=== PATIENT | female | born 1980 | race Hispanic/Latino ===

== ENCOUNTER 2018-09-12 13:21 | Emergency (ER) | payer SELFPAY ==
[2018-09-12] MEDS ORDERED: HYDROXYZINE HCL 25 MG TABLET ONE (15:13)
== END 2018-09-12 15:31 | disposition home or self-care (01) ==
LOC: EDH 13:21
DX: F41.1 Generalized anxiety disorder (principal); I10 Essential (primary) hypertension; Z90.49 Acquired absence of other specified parts of digestive tract
CPT/HCPCS: 93005

== ENCOUNTER 2019-09-03 03:04 | Emergency (ER) | payer SELFPAY ==
[2019-09-03 04:43] LABS: RAPID GROUP A STREP NEGATIVE (NEGATIVE)
[2019-09-03 04:46] LABS: APPEARANCE,URINE Turbid (CLEAR); BILIRUBIN,URINE Negative (NEGATIVE); COLOR,URINE Dark Yellow (YELLOW); GLUCOSE, URINE (UA) Negative (NEGATIVE); KETONES,URINE Negative (NEGATIVE); LEUKOCYTE ESTERASE ,URINE Large (NEGATIVE); NITRATE,URINE Negative (NEGATIVE); OCCULT BLOOD,URINE Large (NEGATIVE); PH,URINE 5.5 (5.0-8.0); PROTEIN,URINE 300 mg/dL (NEGATIVE)
[2019-09-03 04:53] LABS: HCG,QUAL RESULT NEGATIVE (NEGATIVE)
[2019-09-03 04:55] LABS: BACTERIA,URINE Few /HPF (None Seen); SQUAMOUS EPITHELIAL CELL,UR Few /HPF (0-2); WBC,URINE >100 /HPF (0-1)
[2019-09-03] MEDS ORDERED: LEVOFLOXACIN 500 MG TABLET ONE (05:15)
== END 2019-09-03 05:28 | disposition home or self-care (01) ==
LOC: EDH 03:04
DX: N39.0 Urinary tract infection, site not specified (principal); J32.9 Chronic sinusitis, unspecified; I10 Essential (primary) hypertension; F41.9 Anxiety disorder, unspecified; Z90.49 Acquired absence of other specified parts of digestive tract; Z88.0 Allergy status to penicillin
CPT/HCPCS: 81001; 81025; 87077; 87088; 87186; 87804; 87880

== ENCOUNTER 2021-02-14 09:03 | Emergency (ER) | payer SELFPAY ==
[~2021-02-14] VITALS: Ht 152.4 cm; Wt 74.4 kg
[2021-02-14 11:19] LABS: BASOPHILS % (AUTO) 0.5 % (0.0-5.0); EOSINOPHILS % (AUTO) 3.6 % (0.0-8.0); HEMATOCRIT 43.4 % (36-48); LYMPHOCYTES % (AUTO) 27.3 % (21.0-51.0); MEAN CORPUSCULAR HEMOGLOBIN 30.8 pg (27.0-33.0); MEAN CORPUSCULAR HGB CONC 33.9 g/dL (32.0-36.0); MONOCYTES % (AUTO) 5.5 % (3.0-13.0); NEUTROPHILS % (AUTO) 62.9 % (40.0-77.0); PLATELET COUNT (AUTO) 343 K/uL (130-400); RED BLOOD CELL COUNT(AUTO) 4.77 MIL/uL (4.00-5.50); RED CELL DISTRIBUTION WIDTH 12.8 % (11.0-15.5); WHITE BLOOD COUNT (AUTO) 11.8 K/uL (4.8-10.8)
[2021-02-14 11:27] LABS: CARBON DIOXIDE 24 mmol/L (21-32); CHLORIDE 103 mmol/L (101-111); CREATININE 0.6 mg/dL (0.5-1.5); GLOMERULAR FILTR. RATE CALC 117 mL/min (>60); GLUCOSE,RANDOM 148 mg/dL (70-105); POTASSIUM 3.9 mmol/L (3.5-5.1); SODIUM SERUM 138 mmol/L (136-145); UREA NITROGEN, BLOOD 13 mg/dL (7-18)
[2021-02-14 11:50] LABS: ALANINE AMINOTRANSFERASE 64 U/L (12-78); ALBUMIN 3.7 g/dL (3.5-5.0); ASPARTATE AMINOTRANSFERASE 45 U/L (10-37); BILIRUBIN,TOTAL 0.7 mg/dL (0.2-1.0); CREATINE KINASE, TOTAL 47 U/L (21-232); MYOGLOBIN 19 ng/mL (10-92); TOTAL PROTEIN, SERUM 8.2 g/dL (6.0-8.3); TROPONIN I < 0.04 ng/mL (0.00-0.06)
[2021-02-14] MEDS ORDERED: ONDANSETRON HCL 4 MG/2 ML VIAL IVP ONE (14:15)
[2021-02-14] MEDS ORDERED: LACTATED RINGERS 1000ML 1,000 ML IV ONE (14:15)
[2021-02-14] MEDS ORDERED: MORPHINE 2 MG SYG (2MG/1ML) IVP ONE (14:15)
[2021-02-14 14:36] VITALS: BP 122/73
[2021-02-14] MEDS ORDERED: ONDA4TAB4 PO (16:03)
[2021-02-14] MEDS ORDERED: DICY20TA2 PO (16:03)
[2021-02-14 16:24] VITALS: BP 125/75
== END 2021-02-14 16:27 | disposition home or self-care (01) ==
LOC: EDH 09:03
DX: K52.9 Noninfective gastroenteritis and colitis, unspecified (principal); E86.0 Dehydration; R11.2 Nausea with vomiting, unspecified
CPT/HCPCS: 36415; 71046; 80053; 82550; 83874; 84484 ×2; 85025; 93005; 96361; 96374; 96375; 99285; J2405; J7120

== ENCOUNTER 2021-05-27 02:12 | Emergency (ER) | payer BC, OTHER ==
[~2021-05-27] VITALS: Ht 152.4 cm; Wt 75.7 kg
[~2021-05-27 02:12] MED LIST: DICY20TA2 PO; ONDA4TAB4 PO
[2021-05-27 02:33] VITALS: BP 177/76
[2021-05-27 02:40] VITALS: BP 133/82
[2021-05-27 02:53] LABS: APPEARANCE,URINE Clear (CLEAR); BILIRUBIN,URINE Negative (NEGATIVE); COLOR,URINE Yellow (YELLOW); GLUCOSE, URINE (UA) 500 mg/dL (NEGATIVE); KETONES,URINE Negative (NEGATIVE); LEUKOCYTE ESTERASE ,URINE Negative (NEGATIVE); NITRATE,URINE Negative (NEGATIVE); OCCULT BLOOD,URINE Negative (NEGATIVE); PH,URINE 8.5 (5.0-8.0); PROTEIN,URINE Trace mg/dL (NEGATIVE)
[2021-05-27 02:55] LABS: HCG,QUAL RESULT NEGATIVE (NEGATIVE)
[2021-05-27 03:00] VITALS: BP 119/71
[2021-05-27 03:22] LABS: BACTERIA,URINE Rare /HPF (None Seen); RBC,URINE None Seen /HPF (0-1); WBC,URINE None Seen /HPF (0-1)
== END 2021-05-27 04:29 | disposition home or self-care (01) ==
LOC: EDH 02:12
DX: J06.9 Acute upper respiratory infection, unspecified (principal); Z20.822 Contact with and (suspected) exposure to COVID-19; Z79.899 Other long term (current) drug therapy; Z90.49 Acquired absence of other specified parts of digestive tract
CPT/HCPCS: 71046; 81001; 81025; 87635; 87804 ×2; 99284; C9803

== ENCOUNTER 2021-09-09 16:48 | Emergency (ER) | payer OTHER ==
[~2021-09-09] VITALS: Ht 152.4 cm; Wt 75.7 kg
[2021-09-09] MEDS ORDERED: 0.9%NACL 1000ML 1,000 ML IV ONE (17:30)
[2021-09-09] MEDS ORDERED: ACETAMINOPHEN 500 MG TABLET PO ONE (17:30)
[2021-09-09] MEDS ORDERED: IBUPROFEN 800 MG TAB PO ONE (17:30)
[2021-09-09] MEDS ORDERED: PROMETHAZINE HCL 25 MG/ML 1ML AMPULE IM ONE (17:30)
[2021-09-09 17:37] LABS: BASOPHILS % (AUTO) 0.7 % (0.0-5.0); EOSINOPHILS % (AUTO) 1.4 % (0.0-8.0); HEMATOCRIT 41.4 % (36-48); LYMPHOCYTES % (AUTO) 7.8 % (21.0-51.0); MEAN CORPUSCULAR HGB CONC 33.8 g/dL (32.0-36.0); MEAN CORPUSCULAR VOLUME 91.6 fL (79-99); MONOCYTES % (AUTO) 9.3 % (3.0-13.0); NEUTROPHILS % (AUTO) 80.2 % (40.0-77.0); PLATELET COUNT (AUTO) 294 K/uL (130-400); RED BLOOD CELL COUNT(AUTO) 4.52 MIL/uL (4.00-5.50); RED CELL DISTRIBUTION WIDTH 12.3 % (11.0-15.5); WHITE BLOOD COUNT (AUTO) 10.2 K/uL (4.8-10.8)
[2021-09-09 17:54] LABS: APPEARANCE,URINE Clear (CLEAR); BILIRUBIN,URINE Negative (NEGATIVE); COLOR,URINE Yellow (YELLOW); GLUCOSE, URINE (UA) Negative (NEGATIVE); KETONES,URINE Negative (NEGATIVE); LEUKOCYTE ESTERASE ,URINE Negative (NEGATIVE); NITRATE,URINE Negative (NEGATIVE); OCCULT BLOOD,URINE Negative (NEGATIVE); PROTEIN,URINE Negative (NEGATIVE); UROBILINOGEN,URINE 0.2 mg/dL (0.2-1.0)
[2021-09-09 17:56] LABS: CREATININE 0.6 mg/dL (0.5-1.5); POTASSIUM 3.5 mmol/L (3.5-5.1)
[2021-09-09 17:57] LABS: HCG,QUAL RESULT NEGATIVE (NEGATIVE)
[2021-09-09 18:05] LABS: ALBUMIN 3.8 g/dL (3.5-5.0); BILIRUBIN,TOTAL 0.8 mg/dL (0.2-1.0); CRP QUANTITATIVE 12.8 mg/L (0.00-9.0); TOTAL PROTEIN, SERUM 7.9 g/dL (6.0-8.3)
[2021-09-09] MEDS ORDERED: ALBU8.5H8 IH (18:22)
[2021-09-09] MEDS ORDERED: D-ME1POW16 PO (18:22)
[2021-09-09 18:50] VITALS: BP 145/74
== END 2021-09-09 18:52 | disposition home or self-care (01) ==
LOC: EDH 16:48
DX: U07.1 COVID-19 (principal); E11.9 Type 2 diabetes mellitus without complications; Z79.1 Long term (current) use of non-steroidal anti-inflammatories (NSAID); Z79.899 Other long term (current) drug therapy; Z90.49 Acquired absence of other specified parts of digestive tract
CPT/HCPCS: 36415; 71045; 80053; 81003; 81025; 85025; 86140; 87635; 87804 ×2; 87880; 96360; 96372; 99284; C9803; J2550; J7030

== ENCOUNTER 2022-10-27 18:15 | Emergency (ER) | payer BC, OTHER ==
[~2022-10-27] VITALS: Ht 152.4 cm; Wt 77.1 kg
[~2022-10-27 18:15] MED LIST changes: +ALBU8.5H8 IH; +D-ME1POW16 PO
[2022-10-27] MEDS ORDERED: LACTATED RINGERS 1000ML 1,000 ML IV ONE (20:00)
[2022-10-27] MEDS ORDERED: MORPHINE 4 MG SYG IVP ONE (20:00)
[2022-10-27 20:12] LABS: BASOPHILS % (AUTO) 0.7 % (0.0-5.0); EOSINOPHILS % (AUTO) 1.9 % (0.0-8.0); HEMATOCRIT 41.4 % (36-48); LYMPHOCYTES % (AUTO) 35.2 % (21.0-51.0); MEAN CORPUSCULAR HEMOGLOBIN 31.6 pg (27.0-33.0); MEAN CORPUSCULAR HGB CONC 33.8 g/dL (32.0-36.0); MEAN CORPUSCULAR VOLUME 93.5 fL (79-99); MONOCYTES % (AUTO) 7.2 % (3.0-13.0); NEUTROPHILS % (AUTO) 54.4 % (40.0-77.0); PLATELET COUNT (AUTO) 339 K/uL (130-400); RED BLOOD CELL COUNT(AUTO) 4.43 MIL/uL (4.00-5.50); RED CELL DISTRIBUTION WIDTH 12.1 % (11.0-15.5); WHITE BLOOD COUNT (AUTO) 11.8 K/uL (4.8-10.8)
[2022-10-27 20:18] LABS: APPEARANCE,URINE CLOUDY (CLEAR); BILIRUBIN,URINE NEGATIVE (NEGATIVE); COLOR,URINE LIGHT-YELLOW (YELLOW); GLUCOSE, URINE (UA) NEGATIVE (NEGATIVE); KETONES,URINE NEGATIVE (NEGATIVE); LEUKOCYTE ESTERASE ,URINE 250 Leu/uL (NEGATIVE); NITRATE,URINE NEGATIVE (NEGATIVE); OCCULT BLOOD,URINE NEGATIVE (NEGATIVE); PH,URINE 6.5 (5.0-8.0); PROTEIN,URINE NEGATIVE (NEGATIVE); UROBILINOGEN,URINE 0.2 mg/dL (0.2-1.0)
[2022-10-27 20:28] LABS: BACTERIA,URINE RARE /HPF (None Seen); SQUAMOUS EPITHELIAL CELL,UR MOD /HPF (0-2); YEAST,URINE BUDDING RARE /HPF (None Seen)
[2022-10-27 20:29] LABS: CREATININE 0.7 mg/dL (0.5-1.5); POTASSIUM 3.7 mmol/L (3.5-5.1)
[2022-10-27 20:31] LABS: INR 0.95 (0.85-1.15); PROTHROMBIN TIME 10.4 SEC (9.6-11.6)
[2022-10-27 20:33] LABS: PARTIAL THROMBOPLASTIN TIME 29.7 SEC (26.3-35.5)
[2022-10-27 20:39] LABS: ALBUMIN 3.8 g/dL (3.5-5.0)
[2022-10-27] MEDS ORDERED: IOHEXOL 350 MG/ML 100ML INFUS..BTL IV ONE (20:49)
[2022-10-27] MEDS ORDERED: IBUP-1493 PO (22:01)
[2022-10-27] MEDS ORDERED: CYCL-309 PO (22:01)
[2022-10-27 22:10] VITALS: BP 122/73
== END 2022-10-27 22:34 | disposition home or self-care (01) ==
LOC: EDH 18:15
DX: M62.830 Muscle spasm of back (principal); M54.2 Cervicalgia; F41.9 Anxiety disorder, unspecified; E11.9 Type 2 diabetes mellitus without complications; I10 Essential (primary) hypertension; Z90.49 Acquired absence of other specified parts of digestive tract; V43.62XA Car passenger injured in collision with other type car in traffic accident, initial encounter; Y93.89 Activity, other specified; Y92.89 Other specified places as the place of occurrence of the external cause; Y99.8 Other external cause status
CPT/HCPCS: 99285; 70450; 96374; 96361; 82550; 84484; 80053; 85025; 85610; 85730; 87088; 81001; 81025; 36415; 72125; 71260; 74177; 93005; J7120; J2270; Q9967

== ENCOUNTER 2023-02-28 01:48 | Emergency (ER) | payer OTHER ==
[~2023-02-28] VITALS: Ht 167.6 cm; Wt 76.2 kg
[~2023-02-28 01:48] MED LIST changes: +CYCL-309 PO; +IBUP-1493 PO
[2023-02-28] MEDS ORDERED: METOCLOPRAMIDE 10 MG TABLET PO ONE (03:30)
[2023-02-28] MEDS ORDERED: KETOROLAC 60 MG VIAL (30MG/ML) IM ONE (03:30)
[2023-02-28] MEDS ORDERED: ACETAMINOPHEN WITH CODEINE 1 TAB TAB PO ONE (03:30)
[2023-02-28 04:04] VITALS: BP 128/88
== END 2023-02-28 04:05 | disposition home or self-care (01) ==
LOC: EDH 01:48
DX: G44.209 Tension-type headache, unspecified, not intractable (principal); I10 Essential (primary) hypertension; E11.9 Type 2 diabetes mellitus without complications; F41.0 Panic disorder [episodic paroxysmal anxiety]; Z87.19 Personal history of other diseases of the digestive system; Z90.49 Acquired absence of other specified parts of digestive tract; Z79.899 Other long term (current) drug therapy
CPT/HCPCS: 99283; 96372; J1885

== ENCOUNTER 2023-03-07 23:18 | Emergency (ER) | payer OTHER ==
[~2023-03-07] VITALS: Ht 165.1 cm; Wt 74.8 kg
[2023-03-07 23:34] LABS: BASOPHILS % (AUTO) 0.6 % (0.0-5.0); HEMATOCRIT 40.6 % (36-48); LYMPHOCYTES % (AUTO) 35.2 % (21.0-51.0); MEAN CORPUSCULAR HEMOGLOBIN 31.7 pg (27.0-33.0); MEAN CORPUSCULAR HGB CONC 34.7 g/dL (32.0-36.0); MEAN CORPUSCULAR VOLUME 91.2 fL (79-99); MONOCYTES % (AUTO) 6.8 % (3.0-13.0); NEUTROPHILS % (AUTO) 54.8 % (40.0-77.0); PLATELET COUNT (AUTO) 376 K/uL (130-400); RED BLOOD CELL COUNT(AUTO) 4.45 MIL/uL (4.00-5.50); RED CELL DISTRIBUTION WIDTH 12.5 % (11.0-15.5); WHITE BLOOD COUNT (AUTO) 12.3 K/uL (4.8-10.8)
[2023-03-07 23:46] LABS: CREATININE 0.6 mg/dL (0.5-1.5); POTASSIUM 3.9 mmol/L (3.5-5.1)
[2023-03-07 23:50] LABS: ALBUMIN 3.7 g/dL (3.5-5.0); TOTAL PROTEIN, SERUM 7.9 g/dL (6.0-8.3)
[2023-03-08 00:54] LABS: APPEARANCE,URINE CLEAR (CLEAR); BILIRUBIN,URINE NEGATIVE (NEGATIVE); COLOR,URINE COLORLESS (YELLOW); GLUCOSE, URINE (UA) NEGATIVE (NEGATIVE); KETONES,URINE NEGATIVE (NEGATIVE); LEUKOCYTE ESTERASE ,URINE NEGATIVE Leu/uL (NEGATIVE); NITRATE,URINE NEGATIVE (NEGATIVE); OCCULT BLOOD,URINE NEGATIVE (NEGATIVE); PROTEIN,URINE NEGATIVE (NEGATIVE); UROBILINOGEN,URINE 0.2 mg/dL (0.2-1.0)
[2023-03-08 02:05] VITALS: BP 136/73
== END 2023-03-08 02:17 | disposition home or self-care (01) ==
LOC: EDH 23:18
DX: R07.89 Other chest pain (principal); F41.9 Anxiety disorder, unspecified; R06.02 Shortness of breath; I10 Essential (primary) hypertension; E11.9 Type 2 diabetes mellitus without complications; Z90.49 Acquired absence of other specified parts of digestive tract; Z98.890 Other specified postprocedural states
CPT/HCPCS: 36415; 71045; 80053; 81003; 81025; 83880; 84484; 85025; 85378; 93005

== ENCOUNTER 2023-03-09 23:31 | Emergency (ER) | payer OTHER ==
[~2023-03-09] VITALS: Ht 152.4 cm; Wt 74.8 kg
[2023-03-10 01:20] LABS: BASOPHILS % (AUTO) 0.5 % (0.0-5.0); HEMATOCRIT 40.9 % (36-48); LYMPHOCYTES % (AUTO) 32.2 % (21.0-51.0); MEAN CORPUSCULAR HEMOGLOBIN 31.5 pg (27.0-33.0); MEAN CORPUSCULAR HGB CONC 34.2 g/dL (32.0-36.0); MEAN CORPUSCULAR VOLUME 92.1 fL (79-99); MONOCYTES % (AUTO) 5.5 % (3.0-13.0); NEUTROPHILS % (AUTO) 60.5 % (40.0-77.0); PLATELET COUNT (AUTO) 368 K/uL (130-400); RED BLOOD CELL COUNT(AUTO) 4.44 MIL/uL (4.00-5.50); RED CELL DISTRIBUTION WIDTH 12.8 % (11.0-15.5); WHITE BLOOD COUNT (AUTO) 13.2 K/uL (4.8-10.8)
[2023-03-10 01:28] VITALS: BP 131/89
[2023-03-10 01:30] LABS: CREATININE 0.7 mg/dL (0.5-1.5); POTASSIUM 3.7 mmol/L (3.5-5.1)
[2023-03-10 01:35] LABS: ALBUMIN 3.9 g/dL (3.5-5.0); TOTAL PROTEIN, SERUM 8.2 g/dL (6.0-8.3)
[2023-03-10 01:39] LABS: APPEARANCE,URINE CLEAR (CLEAR); BILIRUBIN,URINE NEGATIVE (NEGATIVE); COLOR,URINE COLORLESS (YELLOW); GLUCOSE, URINE (UA) NEGATIVE (NEGATIVE); KETONES,URINE NEGATIVE (NEGATIVE); LEUKOCYTE ESTERASE ,URINE NEGATIVE Leu/uL (NEGATIVE); NITRATE,URINE NEGATIVE (NEGATIVE); OCCULT BLOOD,URINE SMALL (NEGATIVE); PROTEIN,URINE NEGATIVE (NEGATIVE); UROBILINOGEN,URINE 0.2 mg/dL (0.2-1.0)
[2023-03-10 01:42] LABS: SQUAMOUS EPITHELIAL CELL,UR RARE /HPF (0-2); WBC,URINE 0-1 /HPF (0-1)
[2023-03-10] MEDS ORDERED: BISM262O28 PO (02:14)
== END 2023-03-10 02:24 | disposition home or self-care (01) ==
LOC: EDH 23:31
DX: F41.9 Anxiety disorder, unspecified (principal); R19.7 Diarrhea, unspecified; I10 Essential (primary) hypertension; E11.9 Type 2 diabetes mellitus without complications; Z90.49 Acquired absence of other specified parts of digestive tract; Z79.899 Other long term (current) drug therapy
CPT/HCPCS: 36415; 80053; 81001; 85025

== ENCOUNTER 2023-10-21 09:56 | Emergency (ER) | payer OTHER ==
[~2023-10-21] VITALS: Ht 152.4 cm; Wt 74.8 kg
[~2023-10-21 09:56] MED LIST changes: +BISM262O28 PO
[2023-10-21] MEDS: LACTATED RINGERS 1000ML 1,000 ML IV ONE (10:49)
[2023-10-21] MEDS: KETOROLAC 30MG VIAL (30MG/ML) IVP ONE (10:49)
[2023-10-21] MEDS: PROCHLORPERAZINE 10MG/2ML INJ IV ONE (10:49)
[2023-10-21 11:17] LABS: BASOPHILS # (AUTO) 0.06 K/uL (0.00-0.20); BASOPHILS % (AUTO) 0.7 % (0.0-5.0); EOSINOPHILS # (AUTO) 0.18 K/uL (0.00-0.70); HEMATOCRIT 41.9 % (36-48); IMMATURE GRANULOCYTE ABSOLUTE 0.04 K/uL (0-1); LYMPHOCYTES # (AUTO) 2.8 K/uL (1.0-4.8); LYMPHOCYTES % (AUTO) 30.6 % (21.0-51.0); MEAN CORPUSCULAR HGB CONC 35.6 g/dL (32.0-36.0); MEAN CORPUSCULAR VOLUME 90.1 fL (79-99); MONOCYTES # (AUTO) 0.5 K/uL (0.1-1.0); NEUTROPHILS # (AUTO) 5.5 K/uL (1.8-7.7); NEUTROPHILS % (AUTO) 61.3 % (40.0-77.0); PLATELET COUNT (AUTO) 450 K/uL (130-400); RED BLOOD CELL COUNT(AUTO) 4.65 MIL/uL (4.00-5.50); RED CELL DISTRIBUTION WIDTH 12.7 % (11.0-15.5)
[2023-10-21 11:22] LABS: APPEARANCE,URINE CLEAR (CLEAR); BILIRUBIN,URINE NEGATIVE (NEGATIVE); COLOR,URINE COLORLESS (YELLOW); GLUCOSE, URINE (UA) NEGATIVE (NEGATIVE); HCG,QUALITATIVE URINE NEGATIVE (NEGATIVE); KETONES,URINE NEGATIVE (NEGATIVE); LEUKOCYTE ESTERASE ,URINE NEGATIVE Leu/uL (NEGATIVE); NITRATE,URINE NEGATIVE (NEGATIVE); OCCULT BLOOD,URINE NEGATIVE (NEGATIVE); PROTEIN,URINE NEGATIVE (NEGATIVE); UROBILINOGEN,URINE 0.2 mg/dL (0.2-1.0)
[2023-10-21 11:25] LABS: CREATININE 0.6 mg/dL (0.5-1.5); POTASSIUM 3.6 mmol/L (3.5-5.1)
[2023-10-21 11:29] LABS: ALBUMIN 3.9 g/dL (3.5-5.0); BILIRUBIN,TOTAL 0.7 mg/dL (0.2-1.0); TOTAL PROTEIN, SERUM 7.9 g/dL (6.0-8.3)
[2023-10-21 11:34] LABS: ADD UA MICROSCOPIC NO
[2023-10-21 11:39] LABS: COVID19 (SARS ANTIGEN RAPID) PRESUMPTIVE NEGATIVE (NEGATIVE)
[2023-10-21 11:40] LABS: INFLUENZA TYPE A Negative For Type A (NEGATIVE); INFLUENZA TYPE B Negative For Type B (NEGATIVE)
[2023-10-21 12:17] VITALS: BP 109/60; PULSE 60; RESP 16; O2SAT 99
== END 2023-10-21 12:23 | disposition left against medical advice (07) ==
LOC: EDH 09:56
DX: R53.1 Weakness (principal); R51.9 Headache, unspecified; R19.7 Diarrhea, unspecified; R11.2 Nausea with vomiting, unspecified; I10 Essential (primary) hypertension; E11.9 Type 2 diabetes mellitus without complications; F41.9 Anxiety disorder, unspecified; Z20.822 Contact with and (suspected) exposure to COVID-19; Z90.49 Acquired absence of other specified parts of digestive tract; Z98.890 Other specified postprocedural states; Z79.899 Other long term (current) drug therapy; Z88.0 Allergy status to penicillin
CPT/HCPCS: 99284; 96374; 71045; 96361; 96375; 87426; 84484; 80053; 83690; 85025; 87804 ×2; 81003; 81025; 36415; J7120; J0780; J1885